=== PATIENT | male | born 1970 | race Caucasian/White ===

== ENCOUNTER 2021-04-16 17:08 | Emergency (ER) | payer SELFPAY ==
[~2021-04-16] VITALS: Ht 172.7 cm; Wt 80.0 kg
[2021-04-16 17:15] VITALS: BP 134/86
[2021-04-16] MEDS ORDERED: LORAZEPAM 1MG TABLET PO ONE (17:30)
[2021-04-16] MEDS ORDERED: OLANZAPINE 5MG TABLET ODT PO ONE (17:30)
== END 2021-04-16 17:41 | disposition left against medical advice (07) ==
LOC: ER 17:08
DX: F23 Brief psychotic disorder (principal)
CPT/HCPCS: 99283